=== PATIENT | male | born 2000 | race African-American/Black ===

== ENCOUNTER 2019-04-02 18:28 | Emergency (ER) | payer MEDICAID ==
[~2019-04-02] VITALS: Ht 182.9 cm; Wt 66.0 kg
[2019-04-02 19:05] VITALS: BP 127/87
[2019-04-02] MEDS ORDERED: AZITHROMYCIN 500 MG TABLET PO ONE (22:00)
[2019-04-02] MEDS ORDERED: CEFTRIAXONE SODIUM 250 MG/VIAL IM ONE (22:00)
[2019-04-02 22:11] LABS: CLARITY URINE CLEAR (CLEAR); COLOR URINE YELLOW (YELLOW); KETONES URINE 1+ (NEGATIVE); LEUKOCYTE ESTERASE URINE 1+ (NEGATIVE); NITRITE URINE NEGATIVE (NEGATIVE); OCCULT BLOOD URINE 2+ (NEGATIVE); PROTEIN URINE TRACE (NEGATIVE); SPECIFIC GRAVITY URINE 1.029 (1.005-1.030)
[2019-04-02] MEDS ORDERED: STERILE WATER FOR INJECTION 10ML VIAL ONE (22:26)
[2019-04-05 09:04] LABS: CHLAMYDIA TRACHOMATIS NAA Positive (Negative); NEISSERIA GONORRHOEAE NAA Negative (Negative)
== END 2019-04-02 22:34 | disposition home or self-care (01) ==
LOC: ER 18:28
DX: N34.2 Other urethritis (principal); F12.10 Cannabis abuse, uncomplicated; F17.200 Nicotine dependence, unspecified, uncomplicated; J45.909 Unspecified asthma, uncomplicated; Z88.2 Allergy status to sulfonamides; Z98.890 Other specified postprocedural states
CPT/HCPCS: 81003; 87086; 87491; 87591; 96372; 99283; A4216; J0696